=== PATIENT | male | born 1990 | race Two or more races ===

== ENCOUNTER 2019-03-24 08:56 | Emergency (ER) | payer OTHER ==
[~2019-03-24] VITALS: Ht 180.3 cm; Wt 108.5 kg
[2019-03-24 09:03] VITALS: BP 144/103
[2019-03-24] MEDS ORDERED: MAALOX/HYOSCYAMINE/LIDOCAINE 45 ML BTL PO ONE (09:30)
[2019-03-24] MEDS ORDERED: DEXAMETHASONE 4 MG/ML, 1ML PO ONE (09:30)
[2019-03-24] MEDS ORDERED: DEXAMETHASONE 4 MG TABLET ONE (09:34)
[2019-03-24] MEDS ORDERED: MAALOX/HYOSCYAMINE/LIDOCAINE 45 ML BTL ONE (09:35)
--- NOTE | 2019-03-24 09:40 | NUR ---
PT SEEN AT [facility] LAST WEEK FOR HELP DETOXING OFF OF ALCOHOL. GIVEN A PRESCRIPTION FOR LIBRIUM. PT STARTED THE MEDICATION SERIES, THEN PAUSED IT TO RESUME DRINKING THE LAST FEW DAYS, INCLUDING LAST NIGHT. THEN WOKE THIS MORNING AND TOOK HIS DOSE OF LIBRIUM. NOW FEELS LIKE HIS THROAT IS DRY AND STATES HE IS HAVING DIFFICULTY SWALLOWING. PT TALKING WITHOUT ISSUE, EASILY UNDERSTOOD. GIVEN GI COCKTAIL, AND DECADRON PER APR, PT HAS NO ISSUES SWALLOWING ANY MEDICATIONS. CALL LIGHT IN REACH.
[2019-03-24] MEDS ORDERED: KETOROLAC 30 MG/1 ML IM ONE (11:00)
[2019-03-24] MEDS ORDERED: KETOROLAC 30 MG/1 ML ONE (11:10)
== END 2019-03-24 12:22 | disposition home or self-care (01) ==
LOC: ED 10:15
DX: G89.11 Acute pain due to trauma (principal); M25.572 Pain in left ankle and joints of left foot; M76.62 Achilles tendinitis, left leg; J03.91 Acute recurrent tonsillitis, unspecified; K29.20 Alcoholic gastritis without bleeding
CPT/HCPCS: 73610; 73630; 96372; 99284; J1100; J1885

== ENCOUNTER 2019-04-25 05:19 | Emergency (ER) | payer SELFPAY ==
[~2019-04-25] VITALS: Ht 180.3 cm; Wt 107.3 kg
[2019-04-25 05:28] VITALS: BP 166/106
--- NOTE | 2019-04-25 05:47 | NUR ---
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
--- NOTE | 2019-04-25 05:57 | NUR ---
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 PER REGISTRATION, PT AMBULATED STEADILY OUT OF LOBBY. PT ASSUMED TO HAVE LEFT
== END 2019-04-25 05:59 | disposition left against medical advice (07) ==
LOC: ED 05:49
DX: R10.9 Unspecified abdominal pain (principal); R11.0 Nausea; Z53.21 Procedure and treatment not carried out due to patient leaving prior to being seen by health care provider

== ENCOUNTER 2019-04-30 05:06 | Emergency (ER) | payer SELFPAY ==
[~2019-04-30] VITALS: Ht 180.3 cm; Wt 105.0 kg
--- NOTE | 2019-04-30 05:34 | NUR ---
Patient presents to ER c/o SOB, cough, and difficulty swallowing with a sore throat. Patient states the symptoms started yesterday. He was hanging out with his neighbors and kids. Patient denies CP. He has coughed things up but hasn't looked at it. Patient states he had an inhaler years ago but no longer has it. Patient is in NAD. Respirations even and unlabored.
[2019-04-30 05:37] VITALS: BP 149/94
[2019-04-30] MEDS ORDERED: ACETAMINOPHEN 325 MG TABLET ONE (05:45)
[2019-04-30] MEDS ORDERED: ACETAMINOPHEN 325 MG TABLET PO ONE (06:00)
--- NOTE | 2019-04-30 06:02 | NUR ---
Discharge instructions given. All questions and concerns addressed. Patient ambulatory with a steady gait. Belongings with patient.
== END 2019-04-30 06:03 | disposition home or self-care (01) ==
LOC: ED 05:50
DX: J02.9 Acute pharyngitis, unspecified (principal)
CPT/HCPCS: 93005; 99283